=== PATIENT | female | born 1935 | race Caucasian/White ===

== ENCOUNTER 2017-04-28 07:23 | Emergency (ER) | payer BC, MEDICARE ==
[2017-04-28 07:36] VITALS: RESP 18
[2017-04-28] MEDS ORDERED: KETOROLAC 60 MG/2 ML VIAL IM STA (07:52)
--- NOTE | 2017-04-28 07:54 | ED ---
General Adult HPI - General Chief complaint: Extremity Injury, Upper Stated complaint: left wrist injury from fall Time Seen by Provider: 04/28/17 07:30 Source: patient, family, RN notes reviewed Mode of arrival: wheelchair Limitations: no limitations - History of Present Illness Initial comments: This is a 81-year-old female presents emergency Department complaining of left wrist and hand pain. Patient states she fell yesterday when she lost her balance and landed on her left wrist and hand. The area since become a little ecchymotic and the posterior hand and is very tender to touch and the wrist in the posterior hand. Patient denies any elbow pain or shoulder pain. Patient denies hitting her head or neck. Patient denies any other extremity pain patient denies any chest or back pain. - Related Data Home Medications Medication Instructions Recorded Confirmed Atorvastatin [Lipitor] 10 mg PO DAILY 04/28/17 04/28/17 Pioglitazone [Actos] 15 mg PO DAILY 04/28/17 04/28/17 glipiZIDE XL [Glucotrol Xl] 5 mg PO DAILY 04/28/17 04/28/17 metFORMIN HCL [Glucophage] 500 mg PO BID 04/28/17 04/28/17 Previous Rx's Medication Instructions Recorded Acetaminophen with Codeine 1 each PO Q4H #20 tab 04/28/17 [Tylenol w/codeine #3] Allergies Allergy/AdvReac Type Severity Reaction Status Date / Time egg AdvReac Nausea & Verified 04/28/17 08:42 Vomiting Review of Systems ROS Statement: Those systems with pertinent positive or pertinent negative responses have been documented in the HPI. ROS Other: All systems not noted in ROS Statement are negative. Past Medical History Past Medical History: CVA/TIA, Diabetes Mellitus History of Any Multi-Drug Resistant Organisms: None Reported Past Surgical History: Joint Replacement, Orthopedic Surgery Additional Past Surgical History / Comment(s): knee Past Psychological History: No Psychological Hx Reported Smoking Status: Never smoker Past Alcohol Use History: Rare Past Drug Use History: None Reported General Exam - General Exam Comments Initial Comments: GENERAL Patient is well-developed and well-nourished. Patient is in mild distress. EYES Patient's pupils are equal and round. Extraocular motion is intact SKIN Unremarkable NEURO The patient is alert and oriented 3 PYSCH Patient has normal interpersonal interactions. MUSCULOSKELETAL Patient's left posterior wrist is extremely tender mildly swollen and there is ecchymosis to the posterior hand which is also tender to palpation Limitations: no limitations Course Vital Signs 04/28/17 07:32 Temperature 97.3 F L Pulse Rate 67 Respiratory 18 Rate Blood Pressure 168/77 O2 Sat by Pulse 99 Oximetry Procedures - Orthopedic Splinting/Casting Injury #1 Side: left Upper Extremity Injury Location: wrist, hand Lower Extremity Immobilizer: posterior splint (It is a short arm splint) Medical Decision Making - Medical Decision Making X-ray of the hand and wrist show no acute abnormality however the patient is still significantly tender so put a splint on and had her follow-up with orthopedics Disposition Clinical Impression: Sprain and strain of wrist Disposition: HOME SELF-CARE Condition: Good Instructions: Wrist Injury (ED) Additional Instructions: Patient should follow-up with orthopedics Prescriptions: Acetaminophen with Codeine [Tylenol w/codeine #3] 1 each PO Q4H #20 tab Referrals: Geeta Petersen MD [Primary Care Provider] - 1-2 days Time of Disposition: 09:19
--- NOTE | 2017-04-28 08:22 | XR ---
EXAMINATION TYPE: XR wrist complete LT DATE OF EXAM: 04/28/2017 COMPARISON: NONE HISTORY: Pain TECHNIQUE: 4 view left wrist FINDINGS: Structures appear osteopenic. Some degenerative joint changes noted. Some minimal calcifica tion may be in the triangular fibrocartilage region. There is soft tissue swelling over the wrist. No acute fractures evident. Old triquetral avulsion is not excluded. IMPRESSION: 1. No acute osseous abnormality. 2. Follow-up exams can be performed 7-10 days from acute trauma for continued pain. Nuclear medicine bone scan MRI can be performed for pain at the anatomic snuff box. 3. Soft tissue swelling distal left wrist
--- NOTE | 2017-04-28 08:24 | XR ---
EXAMINATION TYPE: XR hand complete LT DATE OF EXAM: 04/28/2017 COMPARISON: NONE HISTORY: 4 view left hand TECHNIQUE: Pain and swelling FINDINGS: Degenerative joint changes are present through the proximal distal interphalangeal joint sp aces. Spurring is noted with narrowing of the joint space. 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 Structures are osteopenic. This can be confirmed with bone density . An acute fracture is not identified. Some mild soft tissue swelling may be present. IMPRESSION: 1. 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 2. Mild soft tissue swelling. 3. Osteopenia. 4. No acute fractures evident.
[2017-04-28 09:26] VITALS: BP 147/67; PULSE 72; TEMP 97.4
== END 2017-04-28 09:26 | disposition home or self-care (01) ==
LOC: EC 07:23
DX: S63.502A Unspecified sprain of left wrist, initial encounter (principal); S60.222A Contusion of left hand, initial encounter; E11.9 Type 2 diabetes mellitus without complications; Z86.73 Personal history of transient ischemic attack (TIA), and cerebral infarction without residual deficits; Z98.890 Other specified postprocedural states; Z79.84 Long term (current) use of oral hypoglycemic drugs; Z79.899 Other long term (current) drug therapy; Z91.012 Allergy to eggs; W18.30XA Fall on same level, unspecified, initial encounter
CPT/HCPCS: 99283 ×2; 96372 ×2; 29125 ×2; 73110; 73130; J1885